=== PATIENT | female | born 1950 | race Caucasian/White ===

== ENCOUNTER 2016-10-20 19:40 | Emergency (ER) | payer MEDICARE ==
--- NOTE | ~2016-10-20 | CR72 ---
[facility]. [facility] A Service of [facility] & [facility] / [facility] RADIOLOGY TEXT RESULTS PATIENT: PUMA SIDDIQUI LOCATION: SED : 48 UNIT #: [id number] AGE: [address]: Jadon Sepulveda MD SEX: F ORDER DR: [id number] [place] [id number] MR#: [id number] Acc #: [id number] NAME: PUMA SIDDIQUI. : 1950 SEX: F STUDY DATE/TIME: 10/20/2016 19:15 UNIT: SED ROOM: STUDY DESCRIPTION: CR Chest Single View Portable Attending Physician: Jadon Sepulveda M.D. Ordering Physician: Jadon Sepulveda M.D. Primary Care Physician: Polo Dowling Jr., M.D. MEDICAL IMAGING REPORT This report is preliminary unless electronic signature is present. EXAM Portable chest HISTORY 66-year-old female with chest pain beginning today. History of bilateral mastectomy. COMPARISON 01/08/2016 FINDINGS Portable view of the chest demonstrates moderate lung volumes, satisfactory technique. No infiltrates or effusions. Heart and mediastinum unremarkable. Surgical clips are seen overlying both chests regions consistent with bilateral mastectomies. Minimal levocurvature lumbar spine. No pneumothorax. Overall no acute cardiopulmonary abnormality. Dictated by... Kasey Key M.D. THIS IS AN ELECTRONICALLY VERIFIED REPORT Kasey Key M.D. at 10/21/2016 1:07 PM JACINTO/west TD: 10/20/2016 22:29 JOB #: [id number] MEDICAL IMAGING REPORT Page 1 of 1
--- NOTE | ~2016-10-20 | EKG ---
PATIENT: PUMA SIDDIQUI UNIT #: [id number] Ventricular Rate: 93 BPM Atrial Rate: 93 BPM P-R Interval: 114 ms QRS Duration: 100 ms Q-T Interval: 366 ms QTC Calculation(Bezet): 455 ms P [place]: 52 degrees Calculated R [place]: 64 degrees Calculated T [place]: 24 degrees Diagnosis Line: Normal sinus rhythm Diagnosis Line: Left ventricular hypertrophy with repolarization Diagnosis Line: abnormality Diagnosis Line: Abnormal ECG Nonspecific ST abnormality Inferior Diagnosis Line: leads Diagnosis Line: When compared with ECG of 16-JUN-2015 08:20, Diagnosis Line: No significant change was found Diagnosis Line: Confirmed by DARSHAN FAJARDO MD ([id number]) on 10/24/2016 Diagnosis Line: 11:58:52 AM INTERPRETING MD: TANA LOPEZ
[2016-10-20 19:11] LABS: POC - CKMB 1.6 ng/mL (0.0-7.9); POC - TROPONIN <0.05 ng/mL (<=0.05)
[2016-10-20 19:31] LABS: BASOPHIL# 0.1 X10e3 (0-0.3); DIFF IND NO; EOSINOPHIL# 0.2 X10e3 (0-0.7); EOSINOPHIL% 3.3 % (0.0-7.0); HEMOGLOBIN 13.8 gm/dL (12.0-16.0); LYMPHOCYTE# 1.5 X10e3 (1.0-3.5); LYMPHOCYTE% 20.8 % (17.0-45.0); MEAN CELL VOLUME 86.9 FL (83-96); MEAN CORPUSCULAR HGB CONC 34.5 g/dL (30-36); MEAN PLATELET VOLUME 7.6 FL (6.5-11.5); MONOCYTE# 0.6 X10e3 (0-1.0); MONOCYTE% 8.3 % (3.0-12.0); NEUTROPHIL# 4.7 X10e3 (1.5-7.1); NEUTROPHIL% 66.6 % (40-75); PLATELET COUNT 201 X10e3 (140-420); RED CELL DISTRIBUTION WIDTH 15.7 % (11.0-15.5); WHITE BLOOD COUNT 7.1 X10e3 (4.0-10.5)
[2016-10-20 19:40] LABS: ALBUMIN SERUM 4.5 g/dL (3.5-5.0); BILIRUBIN, DIRECT 0.1 mg/dL (0.0-0.2); BILIRUBIN,INDIRECT 0.3 mg/dL (0.0-0.9); BILIRUBIN,TOTAL 0.4 mg/dL (0.2-2.0); BUN/CREATININE RATIO 36.66; CALCIUM SERUM 9.1 mg/dL (8.4-10.2); CREATININE SERUM 0.6 mg/dL (0.6-1.4); GLOM FILT RATE Estimated 94.3 mL/min (>60); POTASSIUM 3.5 mmol/L (3.5-5.1)
[~2016-10-20 19:40] MED LIST: ACTONEL; ACTONEL PO; ACTONEL30 MG PO; AMOXICILLIN PO; ARIMIDEX1 MG; FISH OIL 1,0001 CAP; GARLIC PO; GLUCOSAMINE/CHONDROI; LORTAB 7.5-5001 TAB; MULTI-VITAMIN1 TAB; NO MEDICATIONS; OYSTER CALCIUM500 MG PO; PROTONIX; PROTONIX PO
== END 2016-10-20 19:57 | disposition home or self-care (01) ==
LOC: SED 19:40
PROVIDERS: Emergency Medicine
DX: R07.89 Other chest pain (principal); R03.0 Elevated blood-pressure reading, without diagnosis of hypertension; Z79.899 Other long term (current) drug therapy
CPT/HCPCS: 36415; 71010; 80048; 80076; 82553; 84484; 85025; 93005; 99284